=== PATIENT | female | born 1990 | race Caucasian/White ===

== ENCOUNTER 2020-11-07 22:30 | Inpatient (IN) | payer OTHER ==
[2020-11-07 23:46] LABS: BASO % 0.7 % (0-2.0); EOS % 2.3 % (0-4.5); HEMATOCRIT 37.6 % (32.4-45.2); HEMOGLOBIN 12.5 GM/dL (10.7-15.3); LYMPH % 18.7 % (8-40); MCH 32.1 pg (25.7-33.7); MCHC 33.2 g/dl (32.0-36.0); MEAN CELL VOLUME 96.6 fl (80-96); MEAN PLT VOLUME 10.5 fl (7.5-11.1); MONO % 6.1 % (3.8-10.2); NEUT % 72.2 % (42.8-82.8); PLATELET COUNT 197 K/MM3 (134-434); RBC 3.89 M/mm3 (3.60-5.2); RDW 13.3 % (11.6-15.6); WHITE BLOOD COUNT 12.6 K/mm3 (4.0-10.0)
[2020-11-07 23:53] LABS: INR 0.91 (0.83-1.09)
[2020-11-07 23:55] LABS: ACTIVATED PTT 27.9 SECONDS (25.2-36.5)
[2020-11-08] MEDS ORDERED: AMPICILLIN - 2 GM in SODIUM CHLORIDE 100 ML IVPB ONE ×2 (00:04→00:08)
[2020-11-08 00:10] LABS: BLOOD UREA NITROGEN 8.1 mg/dL (7-18)
[2020-11-08 00:13] LABS: CREATININE 0.6 mg/dL (0.55-1.3)
[2020-11-08 00:17] VITALS: BMI 27.3
[2020-11-08] MEDS ORDERED: AMPICILLIN SODIUM 2 GM VIAL ONE (00:24)
[2020-11-08 01:06] LABS: HIV INTERPRETATION NEGATIVE (NEGATIVE)
[2020-11-08] MEDS ORDERED: AMPICILLIN SODIUM 1 GM VIAL ONE ×5 (04:20→20:10)
[2020-11-08] MEDS: AMPICILLIN - 1 GM in SODIUM CHLORIDE 100 ML IVPB SCH ×5 (04:20→20:15)
[2020-11-08] MEDS: ELECTROLYTE-148 SOLN 1,000 ML IV SCH (04:50)
[2020-11-09] MEDS ORDERED: AMPICILLIN SODIUM 1 GM VIAL ONE ×6 (00:11→20:05)
[2020-11-09] MEDS: AMPICILLIN - 1 GM in SODIUM CHLORIDE 100 ML IVPB SCH ×6 (00:15→20:15)
[2020-11-09] MEDS ORDERED: OXYTOCIN 30 UNITS in 0.9% NS 30 UNIT/500 ML INFUS.BAG IVPB SCH (03:00)
[2020-11-09] MEDS ORDERED: OXYTOCIN 30 UNITS in 0.9% NS 30 UNIT/500 ML INFUS.BAG IVPB ONE (03:14)
[2020-11-09] MEDS: ELECTROLYTE-148 SOLN 1,000 ML IV SCH ×2 (03:20→16:35)
[2020-11-09] MEDS ORDERED: PCA PUMP NR ONE ×2 (15:37→20:40)
[2020-11-09] MEDS ORDERED: FENTANYL/BUPIVACAINE/NS/PF - PCEA - 50 ML DISP.SYRIN EP ONE ×2 (15:38→20:40)
[2020-11-09] MEDS ORDERED: BUPIVACAINE HCL/PF 0.25% (2.5MG/ML) 10 ML VIAL ONE (15:52)
[2020-11-09] MEDS ORDERED: NALOXONE HCL 0.4 MG/ML VIAL IVPUSH PRN (16:17)
[2020-11-09] MEDS ORDERED: FENTANYL/BUPIVACAINE/NS/PF - PCEA - 50 ML DISP.SYRIN EP SCH (16:30)
[2020-11-09] MEDS ORDERED: OXYTOCIN 20 UNITS in 0.9% NS 20 UNIT/1,000 ML INFUS.BAG IV ONE (21:29)
[2020-11-09] MEDS ORDERED: WITCH HAZEL 50% (TUCKS) 40 PAD/JAR PAD TP PRN (22:40)
[2020-11-09] MEDS ORDERED: BENZOCAINE 20% 57 GM BOTTLE TP PRN (22:40)
[2020-11-09] MEDS ORDERED: BISACODYL 10 MG SUPP.RECT RC PRN (22:40)
[2020-11-09] MEDS ORDERED: BENZOCAINE 28 GM HEMORRHOIDAL OINTMENT TP PRN (22:40)
[2020-11-09] MEDS ORDERED: METHYLERGONOVINE MALEATE 0.2 MG/1 ML AMP IM PRN (22:40)
[2020-11-09] MEDS ORDERED: OXYTOCIN 20 UNITS in 0.9% NS 20 UNIT/1,000 ML INFUS.BAG IV SCH (22:45)
[2020-11-10] MEDS: AMPICILLIN - 1 GM in SODIUM CHLORIDE 100 ML IVPB SCH (00:49)
[2020-11-10] MEDS: ELECTROLYTE-148 SOLN 1,000 ML IV SCH (00:50)
[2020-11-10 08:14] LABS: BASO % 0.2 % (0-2.0); EOS % 0.4 % (0-4.5); HEMATOCRIT 34.4 % (32.4-45.2); HEMOGLOBIN 11.7 GM/dL (10.7-15.3); LYMPH % 9.8 % (8-40); MCH 32.7 pg (25.7-33.7); MEAN PLT VOLUME 9.9 fl (7.5-11.1); MONO % 5.7 % (3.8-10.2); NEUT % 83.9 % (42.8-82.8); PLATELET COUNT 208 K/MM3 (134-434); RBC 3.59 M/mm3 (3.60-5.2); RDW 13.2 % (11.6-15.6); WHITE BLOOD COUNT 21.8 K/mm3 (4.0-10.0)
[2020-11-10] MEDS: IBUPROFEN 600 MG TABLET (FP) PO PRN ×2 (08:51→16:47)
[2020-11-10] MEDS: ACETAMINOPHEN 325 MG TABLET (FP) PO PRN ×2 (08:52→16:49)
[2020-11-10] MEDS ORDERED: PRENATAL VITAMINS W/ FOLIC ACID TABLET (FP) PO SCH (10:00)
[2020-11-10 12:21] LABS: ANISOCYTOSIS 1+; MACROCYTOSIS 1+; PLATELET ESTIMATE NORMAL
[2020-11-10] MEDS ORDERED: SENNOSIDES/DOCUSATE COMBO (SENNA PLUS) TABLET (UD) PO PRN (22:00)
[2020-11-10 22:02] VITALS: BP 103/61; PULSE 75; TEMP 98
[2020-11-11 08:55] LABS: BASO % 0.4 % (0-2.0); HEMATOCRIT 33.2 % (32.4-45.2); HEMOGLOBIN 11.4 GM/dL (10.7-15.3); LYMPH % 20.4 % (8-40); MCH 33.2 pg (25.7-33.7); MCHC 34.4 g/dl (32.0-36.0); MEAN CELL VOLUME 96.4 fl (80-96); MEAN PLT VOLUME 9.8 fl (7.5-11.1); MONO % 5.2 % (3.8-10.2); PLATELET COUNT 191 K/MM3 (134-434); RBC 3.44 M/mm3 (3.60-5.2); RDW 13.5 % (11.6-15.6); WHITE BLOOD COUNT 9.6 K/mm3 (4.0-10.0)
== END 2020-11-11 14:30 | disposition home or self-care (01) | DRG 807 ==
LOC: JDEL 22:30 → JLDR 23:00 → J3W 11-10 00:47
PROVIDERS: ADMIT Obstetrics & Gynecology; ATTEND Obstetrics & Gynecology
PROC: 3E033VJ Introduction of Other Hormone into Peripheral Vein, Percutaneous Approach (ICD-10-PCS; 2020-11-09)
PROC: 10E0XZZ Delivery of Products of Conception, External Approach (ICD-10-PCS; principal; 2020-11-10)
DX: O42.12 Full-term premature rupture of membranes, onset of labor more than 24 hours following rupture (principal); Z37.0 Single live birth; O99.824 Streptococcus B carrier state complicating childbirth; Z3A.38 38 weeks gestation of pregnancy
CPT/HCPCS: 36415; 59409; 80048; 85025; 85610; 85730; 86780; 86850; 86900; 86901; 87389; C9803; U0003; U0005